=== PATIENT | male | born 1970 | race African-American/Black ===

== ENCOUNTER 2016-09-29 14:20 | Emergency (ER) | payer OTHER ==
[~2016-09-29] VITALS: Ht 182.9 cm; Wt 89.5 kg
[~2016-09-29 14:20] MED LIST: CLARITIN; LORTAB 5/500 501 TAB PO; SINUS MEDICATION
[2016-09-29 14:23] VITALS: BP 144/92; PULSE 65; TEMP 98.2
== END 2016-09-29 16:20 | disposition home or self-care (01) ==
LOC: COL.ER 14:20
DX: S61.012A Laceration without foreign body of left thumb without damage to nail, initial encounter (principal); W26.8XXA Contact with other sharp object(s), not elsewhere classified, initial encounter; Y92.009 Unspecified place in unspecified non-institutional (private) residence as the place of occurrence of the external cause; Z23 Encounter for immunization

== ENCOUNTER 2016-10-13 10:05 | Emergency (ER) | payer SELFPAY ==
[2016-10-13 10:08] VITALS: BP 119/76; PULSE 66; TEMP 97.8
== END 2016-10-13 10:27 | disposition home or self-care (01) ==
LOC: COL.ER 10:05
DX: Z48.02 Encounter for removal of sutures (principal)

== ENCOUNTER 2017-07-13 12:53 | Emergency (ER) | payer OTHER ==
[~2017-07-13] VITALS: Ht 182.9 cm; Wt 86.4 kg
[2017-07-13 12:56] VITALS: BP 155/85; PULSE 81; TEMP 98
[2017-07-13] MEDS ORDERED: HYDROCORTISON28.4 GM TP (13:33)
[2017-07-13] MEDS ORDERED: VISTARIL 2525 MG/CAP PO (13:33)
== END 2017-07-13 13:44 | disposition home or self-care (01) ==
LOC: COL.ER 12:53
DX: L29.9 Pruritus, unspecified (principal)